=== PATIENT | female | born 1950 | race Caucasian/White ===

== ENCOUNTER 2024-08-15 14:41 | Emergency (ER) | payer MEDICARE, MEDICAID, SELFPAY ==
[2024-08-15 15:10] VITALS: BP 139/74; PULSE 73; RESP 18; TEMP 37.1; O2SAT 95; BMI 32.8
--- NOTE | 2024-08-15 15:29 | XR_ITS ---
Examination: AP chest single view Technique one AP portable semiupright chest single view Date and time: August 15, 2024 1613 hours INDICATIONS: Coughing congestion today. FINDINGS: Mild enlargement cardiac contour. No lobar pneumonia or pulmonary edema. Moderate osteopenia IMPRESSION: No lobar pneumonia or pulmonary edema
--- NOTE | 2024-08-15 15:33 | PD.EDADULT ---
ED General RME/HPI General Chief complaint: Back Pain/Injury Stated complaint: BACK PROBLEMS Time Seen by Provider: 08/15/24 15:10 Arrival date/time: 08/15/24 14:41 RME / HPI RME / HPI narrative: 74-year-old female patient with significant history of hypertension diabetes mellitus, hyperlipidemia, chronic A-fib on Eliquis, chronic indwelling nephrostomy tube on the right, was brought in by EMS for evaluation regarding urine leaking on the nephrostomy tube insertion. Patient denies any fever. Patient told me that she is still making small amount of urine in her bladder and urine also is still coming out in her nephrostomy tubings. Patient denies any pain denies any fever denies any cough denies any other complaints. Related Data Home Medications ?Medication ?Instructions ?Recorded ?Confirmed pen needle, diabetic 31 gauge x 11/08/22 11/08/22/ (Droplet Pen Needle) pen needle, diabetic 32 gauge x 11/08/22 11/08/22 1/ (Novofine 32) Previous Rx's ?Medication ?Instructions ?Recorded apixaban 5 mg tablet (Eliquis) 5 mg PO BID #60 tabs 04/17/23 atorvastatin 20 mg tablet 20 mg PO HS HLD #30 tabs 04/17/23 escitalopram oxalate 10 mg tablet 10 mg PO QDAY #30 tabs 04/17/23 losartan 25 mg tablet 25 mg PO QDAY #30 tabs 04/17/23 sitagliptin phosphate 100 mg 100 mg PO QDAY #30 tabs 04/17/23 tablet (Januvia) amoxicillin 875 mg-potassium 1 tab PO BID #14 tabs 08/15/24 clavulanate 125 mg tablet Allergies Allergy/AdvReac Type Severity Reaction Status Date / Time No Known Allergies Allergy Verified 07/01/22 21:14 Review of Systems Review of Systems Narrative Review of Systems: Review of system reviewed and within normal limits except mentioned in HPI ED Exam Narrative Physical exam: VITAL SIGNS: Reviewed. GENERAL APPEARANCE: Alert and interactive, follows commands, no acute distress, HEAD AND FACE: Non-traumatic. ENT: PERRL, pink conjunctivitis, eyelid no trauma, Mucous membrane moist. NECK: Supple, nontender, no nuchal rigidity. CHEST: No tenderness, no crepitus, no paradoxical movement, no retractions. LUNGS: Clear, well ventilated, symmetric, no rales, no wheezing, no ronchi, no stridor, good breath sounds bilaterally. HEART: Regular rate, regular rhythm, no murmur, no gallops. ABDOMEN: Soft, positive bowel sounds, nondistended, no guarding, nontender, no rebound, no masses, RECTAL: Deferred. GENITAL: Deferred. NEUROLOGICAL: Gross motor function intact sensory function intact, Appropriate for age. MUSCULOSKELETAL: low back nontender, full range of motion. EXTREMITIES: Nontender, full range of motion. SKIN: Color pink, dry, no rash, no lacerations, no abrasions, no contusions. LYMPHATICS: Deferred. Course Quality Measures none Orders Category Date Time Status Turner [Urinary Catheter] QS Care 08/15/24 16:07 Active IV [Insert IV] NOW Care 08/15/24 21:[address] abdomen pelvis wo con Stat Exams 08/15/24 16:07 Completed XR chest 1V Stat Exams 08/15/24 15:29 Completed B-Type Natriuretic Peptide Stat Lab 08/15/24 16:00 Completed CBC Stat Lab 08/15/24 16:00 Completed Comprehensive Metabolic Panel Stat Lab 08/15/24 16:00 Completed Lactate (Lactic Acid) Stat Lab 08/15/24 16:00 Completed Partial Thromboplastin Time Stat Lab 08/15/24 16:00 Completed Troponin I Stat Lab 08/15/24 16:00 Completed Urinalysis, C/S if Indicated Stat Lab 08/15/24 19:48 Completed Urine Culture Stat Lab 08/15/24 19:48 Received Piper/Tazo 3.375 gm Premix [Zosyn] Med 08/15/24 20:40 Discontinued 3.375 gm in 50 ml IV X1 Vital Signs Vital signs: Vital Signs Temperature 98.8 F 08/15/24 15:10 Pulse Rate 73 08/15/24 15:10 Respiratory Rate 18 08/15/24 15:10 Blood Pressure 139/74 H 08/15/24 15:10 Pulse Oximetry (%) 95 08/15/24 15:10 Oxygen Delivery Method Room Air 08/15/24 15:10 Discharge Plan Plan Patient Disposition: HOME (Self Care) Discharge Disposition comment: Stable Prescriptions/Referrals Prescriptions/Med Rec: New amoxicillin-pot clavulanate 875-125 mg tablet 1 tab PO BID Qty: 14 0RF No Action (DME) pen needle, diabetic [Droplet Pen Needle] 31 gauge x 5/16 needle (DME) pen needle, diabetic [Novofine 32] 32 gauge x 1/4 needle Patient Comments: use 1 PEN NEEDLE once daily atorvastatin 20 mg Tablet 20 mg PO HS Qty: 30 2RF losartan 25 mg tablet 25 mg PO QDAY Qty: 30 0RF escitalopram oxalate 10 mg tablet 10 mg PO QDAY Qty: 30 0RF Januvia 100 mg tablet 100 mg PO QDAY Qty: 30 0RF Patient Comments: take 1 tablet by mouth once daily Eliquis 5 mg tablet 5 mg PO BID Qty: 60 0RF Patient Comments: take 1 tablet by mouth twice a day Referrals: Harriet Smiley MD [Primary Care Provider] - In 1 week Problem List Clinical Impression: UTI (urinary tract infection), History of nephrostomy Patient/Caregiver Discharge Instructions Education Materials: Understanding Urinary Tract ... Additional Instructions: Thank you for the opportunity for serving you today. You are stable for discharged . You are advised to: Follow-up with your PCP in 1 to 2 days Return to ED for worsening of symptoms Increase oral fluids Take medication as prescribed Print Language: Italian Stand Alone Forms: Viri Award Info., Patient Portal Info Letter VIVIANE/ADRIANA Supervising Physician PA/ADRIANA Supervising Physician: MD Kacy [facility] Narrative [facility] hospital course: 74-year-old female patient with significant history of hypertension diabetes mellitus, hyperlipidemia, chronic A-fib on Eliquis, chronic indwelling nephrostomy tube on the right, was brought in by EMS for evaluation regarding urine leaking on the nephrostomy tube insertion. Patient denies any fever. Patient told me that she is still making small amount of urine in her bladder and urine also is still coming out in her nephrostomy tubings. Patient denies any pain denies any fever denies any cough denies any other complaints. Laboratory Significant for UTI otherwise unremarkable. Patient's CT scan of the abdomen and pelvis showed nephrostomy in satisfactory position. Turner catheter was changed to a new one Patient was given Zosyn IV Patient stable for discharge back to facility Meds/Rx Considered, not Ordered None Chronic Illness/Social Conditions which may negatively complicate care or outcome(s)-explain: other (UTI, nephrostomy check, nephrostomy dislodgment) Lab Interpretation Lab(s) interpretation(s): See results MDM Medication Administration(s) Medication Administration History Discontinued Medications Piperacillin/Tazobactam/Dextrose (Zosyn) 3.375 gm in 50 mls @ 100 mls/hr IV X1 ONE Stop: 08/15/24 21:09 Diagnosis Differential diagnosis: Nephrostomy check, UTI, sepsis Most likely dx, and/or detailed dx discussion: UTI, nephrostomy intact
[2024-08-15 15:44] VITALS: BMI 33.9
--- NOTE | 2024-08-15 16:07 | XR_ITS ---
Examination: CT abdomen and pelvis without contrast. Coronal 3-D reconstructions. Sagittal 2-D reconstructions. Date and time of exam:August 15, 2024, 1656 hours Comparison April 15, 2023 INDICATIONS: History nephrostomy tube placement for hydronephrosis CTDI: vol (mGy): 24.4 DLP: (mGycm): 1319 Technique: Axial images of the abdomen have been obtained, 3 mm slice thickness Intravenous contrast material has not been administered. Low dose protocols were performed. One or more of the following dose reduction techniques were used; automated exposure control, adjustment of the mA and/or KV according to patient size, use of iterative reconstruction technique. Findings: No focal liver or splenic lesions Contracted gallbladder No pancreatic mass Multiple right renal calculi, the largest 8 mm Right percutaneous nephrostomy satisfactory position, mild right hydronephrosis Prominent bilateral renal parenchymal scar formation No left hydronephrosis Aortic calcification no aneurysm dilatation Small fat-containing umbilical hernia No bowel obstruction Abundant stool in the rectum Urinary bladder contracted around a Turner catheter IMPRESSION: Right percutaneous nephrostomy drainage tube satisfactory position, mild right hydronephrosis
[2024-08-15 16:20] LABS: Lactate (Lactic Acid) 1.5 mMol/L (0.4-2.0)
[2024-08-15 16:21] LABS: Basophils % (Auto) 0 % (0-2.5); Eosinophils # (Auto) 0.7 Thou/mm3 (0.0-0.5); Eosinophils % (Auto) 7 % (0-10); Hematocrit 36.2 % (36.0-46.0); Hemoglobin 11.7 g/dL (12.0-16.0); Immature Granulocytes % (Auto) 1 % (0-0); Immature Granulocytes Auto 0.06 Thou/mm3 (0.00-0.00); Lymphocytes # (Auto) 1.6 Thou/mm3 (1.0-4.8); Lymphocytes % (Auto) 16 % (10-50); Mean Corpuscular HGB Conc 32.3 g/dl (31.0-37.0); Mean Corpuscular Hemoglobin 29.3 pg (25.0-35.0); Mean Corpuscular Volume 91 fL (80-100); Monocytes # (Auto) 0.8 Thou/mm3 (0.0-0.8); Monocytes % (Auto) 8 % (0-12); Neutrophils % (Auto) 69 % (37-80); Nucleated Red Blood Cell % 0 /100 WBC (0); Platelet Count 270 Thou/mm3 (140-440); RDW Standard Deviation 43.8 fL (36.4-46.3); White Blood Count 10.2 Thou/mm3 (3.6-11.0)
--- NOTE | 2024-08-15 16:46 | PC.NURSE ---
NEPHRO TUBE CAP CHANGED BECAUSE IT WAS LEAKING. NEW CAP FOR NEPHRO TUBE CHANGE. NO LEAKING OBSERVED
[2024-08-15 16:48] LABS: Partial Thromboplastin Time 28.2 Seconds (22.0-36.0)
[2024-08-15 16:54] LABS: B-Type Natriuretic Peptide 66 pg/mL (0-100)
[2024-08-15 17:07] LABS: Alanine Aminotransferase 9 U/L (10-49); Albumin, Serum 3.4 gm/dL (3.4-4.8); Albumin/Globulin Ratio 1.1 (1.2-2.2); Alkaline Phosphatase 109 U/L (46-116); Anion Gap 8 (7-16); Aspartate Amino Transferase 16 U/L (0-34); BUN/Creatinine Ratio 14 Ratio (12-20); Bilirubin,Total 0.3 mg/dL (0.3-1.2); Blood Urea Nitrogen 20 mg/dL (9-23); Calcium 8.6 mg/dL (8.3-10.6); Calcium (Corrected) 9.1 mg/dL (8.5-10.1); Carbon Dioxide 29.7 mMol/L (20.0-31.0); Chloride 103 mMol/L (98-107); Creatinine (Component) 1.4 mg/dL (0.6-1.3); Estimated Creatinine Clearance 39.8 mL/min (>60); Glucose 179 mg/dL (74-106); Osmolality,Calculated 287 (275-295); Potassium 4.5 mMol/L (3.4-5.1); Sodium 141 mMol/L (136-145); Total Protein 6.4 gm/dL (5.7-8.2); Troponin I < 0.002 ng/mL (0.0-0.045); eGFR 39 See Note
--- NOTE | 2024-08-15 17:28 | PC.NURSE ---
PT BIBA WITH URINARY VAZQUEZ CATHETER. PER PROVIDER ORDERS, OLD VAZQUEZ CATH WAS REMOVED AND NEW VAZQUEZ CATH WAS INSTERED
[2024-08-15 19:16] VITALS: BP 138/63; PULSE 67; RESP 18; TEMP 36.6; O2SAT 95
--- NOTE | 2024-08-15 19:30 | PC.NURSE ---
Marine Equipment Test Engineer assumes care of patient at this time, pt A/O x 3 with no c/o pain or acute distress noted or reported at this time, south noted to be secured and below waist and off floor, call light in reach of patient
[2024-08-15 19:55] LABS: Collection Type, Urine Catheter
[2024-08-15 20:03] LABS: Bilirubin,Urine Negative (Negative); Blood,Urine 3+ (Negative); Glucose, Urine Negative (Negative); Ketones,Urine Negative (Negative); Leukocyte Esterase,Urine Positive (Negative); Nitrite,Urine Positive (Negative); Protein,Urine 1+ (Neg - Trace); RBC,Urine 296 /hpf (0-3); Specific Gravity,Urine 1.007 (1.001-1.035); Squamous Epithelial Cell,Urine 2 /hpf (0-5); Urobilinogen,Urine Negative mg/dL (0.0-1.0); WBC,Urine 2626 /hpf (0-5)
[2024-08-15 20:05] LABS: Bacteria,Urine 1+; Clarity,Urine Turbid (Clear/Hazy); Color,Urine Lt-Yellow (Lt Yel-Yel); Culture Indicated,Urine Yes
--- NOTE | 2024-08-15 20:31 | PC.NURSE ---
pt noted to have nephrostomy tube to R mid back, no drainage noted from sit, but is tender to touch
--- NOTE | 2024-08-15 21:04 | PC.NURSE ---
Answered call light, Pt asked for an update about when she would get to go home. Talked to Pts provider Keena Camilo, Provider notified me that Pt will be Dc'd after antibiotics and we will arrange for a ride home. Relayed the message back o Pt. Pt was hungry and with providers permission she was given a sandwich and some chips.
[2024-08-15] MEDS: PIPER/TAZO 3.375 GM PREMIX 3.375 GM/50 ML BAG IV (21:32)
[2024-08-15 21:41] VITALS: BP 133/56; PULSE 71; RESP 18; TEMP 36.5; O2SAT 96
--- NOTE | 2024-08-15 22:38 | PC.NURSE ---
REPORT GIVEN TO YARELI WILLETT AT [facility]
== END 2024-08-15 22:39 | disposition home or self-care (01) ==
PROVIDERS: Nurse Practitioner Family; Emergency Provider Emergency Medicine; PCP Internal Medicine
DX: N39.0 Urinary tract infection, site not specified (principal); Z93.6 Other artificial openings of urinary tract status; I10 Essential (primary) hypertension; E11.9 Type 2 diabetes mellitus without complications; E78.5 Hyperlipidemia, unspecified; I48.20 Chronic atrial fibrillation, unspecified
CPT/HCPCS: 51702; 36415; 71045; 74176; 80053; 81001; 83605; 83880; 84484; 85025; 85730; 87077; 87086; 87186; 96365; 99284; J2543